=== PATIENT | male | born 1955 | race Caucasian/White ===

== ENCOUNTER 2016-10-30 14:27 | Emergency (ER) | payer BC ==
[~2016-10-30] VITALS: Ht 165.1 cm; Wt 79.5 kg
[~2016-10-30 14:27] MED LIST: OMEG10007 PO; RANI150T3 PO; TNR50 PO
[2016-10-30] MEDS ORDERED: LIDOCAINE HCL 2% JELLY 30 ML TUBE EXT ONE ×2 (14:29→16:45)
[2016-10-30 14:33] VITALS: TEMP 36.5; Ht 165.1 cm; Wt 79.5 kg
[2016-10-30] MEDS ORDERED: SODIUM CHLORIDE 0.9% 1000ML 1,000 ML IV STA (15:40)
--- NOTE | 2016-10-30 15:48 | EMERGENCY ROOM VISIT NOTE ---
History First contact with patient: 15:32 Chief Complaint: URINARY SYMPTOMS Stated Complaint: CANT URINATE AND BLOOD Nursing Triage Summary: pt reports unable to void since noon. has blood coming out of penis History of Present Illness The patient is a 61 year old male who presents to the Emergency Room with complaints of urinary retention and hematuria. The patient states that he has not been able to urinate for the last 4 hours. The patient states that when he does attempt to urinate, blood comes out and not urine. He reports feeling uncomfortable and rates his discomfort a 5/10. He denies any fever or chills. He denies any back pain. He denies any nausea or vomiting. He denies any history of kidney stone. He denies any history of prostate enlargement or issues. He denies any falls or injuries. Review of Systems A 10 system review of systems was completed with positives and pertinent negatives listed in the HPI. Past Medical/Surgical History Medical Problems: (1) Hypertension Social History Smoking Status: Never Smoker Alcohol Use: none Drug Use: none Marital Status: Occupation Status: employed Current/Historical Medications Scheduled Atenolol (Atenolol), 50 MG PO DAILY Guaifenesin Ext Rel (Mucinex Ext Rel), 1 TAB PO Q12 Sulfa/Trimethoprim (Bactrim Ds 800MG/160MG), 1 TAB PO BID Tamsulosin Hcl (Flomax), 0.4 MG PO DAILY Miscellaneous Medications Fish Oil ([place]-3), 1 CAP PO Allergies Coded Allergies: Statins (Verified Allergy, Unknown, ., 08/03/16) pt said while on statin he developed pain in his back and then in his heel. Physical Exam Vital Signs Date Time Temp Pulse Resp B/P Pulse Ox O2 Delivery O2 Flow Rate FiO2 10/30/16 20:34 65 21 110/71 95 10/30/16 19:50 65 21 110/71 95 Room Air 10/30/16 18:00 87 18 185/123 94 Room Air 10/30/16 15:53 66 18 214/113 98 Room Air 10/30/16 14:33 36.5 68 18 220/130 98 Room Air Physical Exam VITALS: Vitals are noted on the nurse's note and reviewed by myself. Vital signs stable. The patient is afebrile. He is hypertensive. GENERAL: This is a 61-year-old male, in no acute distress, nondiaphoretic, well- developed well-nourished. SKIN: The skin was without rashes, erythema, edema, or bruising. There is no tenting of the skin. Capillary reflex less than 2 seconds. HEAD: Normocephalic atraumatic. EARS: The external ears are normal in appearance EYES: Pupils equal round and reactive to light and accommodation. Conjunctivae without injection, sclerae without icterus. Extraocular movements intact. NOSE: Patent, turbinates without inflammation or discharge. MOUTH: Mucous membranes moist. Tonsils are not enlarged. Pharynx without erythema or exudate. Uvula midline. Airway patent. Tongue does not deviate. NECK: Supple without nuchal rigidity. No JVD. HEART: Regular rate and rhythm without murmurs gallops or rubs. LUNGS: Clear to auscultation bilaterally without wheezes, rales or rhonchi. No retractions or accessory muscle use. ABDOMEN: Positive bowel sounds x 4. Soft, distended with suprapubic tenderness , without masses or organomegaly. There is no CVA tenderness. MUSCULOSKELETAL: No muscle atrophy, erythema, or edema noted. Full range of motion in all extremities. No tenderness to palpation. Normal gait. Strength 5/5 throughout. NEURO: Patient was alert and oriented to person place and time. No focal neurological deficits. Medical Decision & Procedures ER Provider Diagnostic Interpretation: ABDOMEN AND PELVIS CT WITHOUT CONTRAST CT DOSE: 2328.78 mGy.cm HISTORY: hematuria, urinary retention TECHNIQUE: Multiaxial CT images of the abdomen and pelvis were performed without the use of intravenous and oral contrast according to the standard department stone protocol. COMPARISON STUDY: Abdomen and pelvis CT 05/12/2008. FINDINGS: A 1.4 cm hypodense lesion within the upper pole of the right kidney which is similar in size. This is indeterminate on this noncontrast study but favors a cyst. Mild bilateral perinephric edema which appear symmetric. There is mild fullness within the bilateral renal collecting systems without doreen hydronephrosis. No renal or ureteral calculi. The bladder is moderately distended. No bladder wall thickening. Small fat-containing umbilical hernia. Small fat containing left inguinal hernia which is not significantly changed. Small hiatus hernia. The lung bases are essentially clear. Mild edema anterior to the bladder. Mild bilateral periureteral edema. The unenhanced liver demonstrates a 5 mm hypodense lesion on image 46. This is stable from the prior study and is likely benign. The unenhanced spleen, adrenal glands, and pancreas are unremarkable. Cholelithiasis. No gallbladder wall thickening. Suboptimal evaluation for bowel pathology due to the lack of intravenous and oral contrast. However, there is no definite bowel wall thickening or obstruction. A few colonic diverticula. IMPRESSION: 1. No renal or ureteral stones. 2. Mild fullness within the bilateral renal collecting systems without doreen hydronephrosis. This is likely due to the distended bladder. Recommend catheterization. 3. Mild bilateral perinephric edema, periureteral edema, and edema anterior to the bladder. This could represent an infectious process. Recommend correlation with urinalysis. 4. No definite bowel wall thickening or obstruction. 5. Cholelithiasis. 6. Normal appendix. Laboratory Results 10/30/16 16:32 Red Blood Count 5.45, Mean Corpuscular Volume 90.1, Mean Corpuscular Hemoglobin 33.8, Mean Corpuscular Hemoglobin Concent 37.5, Mean Platelet Volume 10.3, Neutrophils (%) (Auto) 74.3, Lymphocytes (%) (Auto) 16.4, Monocytes (%) (Auto) 7.6, Eosinophils (%) (Auto) 0.8, Basophils (%) (Auto) 0.6, Neutrophils # (Auto) 7.67, Lymphocytes # (Auto) 1.69, Monocytes # (Auto) 0.78, Eosinophils # (Auto) 0.08, Basophils # (Auto) 0.06 10/30/16 16:32 Test 10/30/16 16:32 10/30/16 19:47 White Blood Count 10.31 K/uL (4.8-10.8) Red Blood Count 5.45 M/uL (4.7-6.1) Hemoglobin 18.4 g/dL (14.0-18.0) Hematocrit 49.1 % (42-52) Mean Corpuscular Volume 90.1 fL (80-100) Mean Corpuscular Hemoglobin 33.8 pg (25-34) Mean Corpuscular Hemoglobin Concent 37.5 g/dl (32-36) Platelet Count 204 K/uL (130-400) Mean Platelet Volume 10.3 fL (7.4-10.4) Neutrophils (%) (Auto) 74.3 % Lymphocytes (%) (Auto) 16.4 % Monocytes (%) (Auto) 7.6 % Eosinophils (%) (Auto) 0.8 % Basophils (%) (Auto) 0.6 % Neutrophils # (Auto) 7.67 K/uL (1.4-6.5) Lymphocytes # (Auto) 1.69 K/uL (1.2-3.4) Monocytes # (Auto) 0.78 K/uL (0.11-0.59) Eosinophils # (Auto) 0.08 K/uL (0-0.5) Basophils # (Auto) 0.06 K/uL (0-0.2) RDW Standard Deviation 44.0 fL (36.4-46.3) RDW Coefficient of Variation 13.6 % (11.5-14.5) Immature Granulocyte % (Auto) 0.3 % Immature Granulocyte # (Auto) 0.03 K/uL (0.00-0.02) Prothrombin Time 11.3 SECONDS (9.0-12.0) Prothromb Time International Ratio 1.1 (0.9-1.1) Activated Partial Thromboplast Time 25.8 SECONDS (21.0-31.0) Partial Thromboplastin Ratio 1.0 Anion Gap 15.0 mmol/L (3-11) Est Creatinine Clear Calc Drug Dose 53.8 ml/min Estimated GFR () 62.4 Estimated GFR (Non- 53.8 BUN/Creatinine Ratio 16.6 (10-20) Calcium Level 8.8 mg/dl (8.5-10.1) Total Bilirubin 2.7 mg/dl (0.2-1) Aspartate Amino Transf (AST/SGOT) 28 U/L (15-37) Alanine Aminotransferase (ALT/SGPT) 43 U/L (12-78) Alkaline Phosphatase 94 U/L (45-117) Total Protein 8.0 gm/dl (6.4-8.2) Albumin 4.5 gm/dl (3.4-5.0) Globulin 3.5 gm/dl (2.5-4.0) Albumin/Globulin Ratio 1.3 (0.9-2) Urine Color ORANGE Urine Appearance CLOUDY (CLEAR) Urine pH 5.0 (4.5-7.5) Urine Specific [place] 1.010 (1.000-1.030) Urine Protein TRACE (NEG) Urine Glucose (UA) NEG (NEG) Urine Ketones NEG (NEG) Urine Occult Blood 3+ (NEG) Urine Nitrite NEG (NEG) Urine Bilirubin NEG (NEG) Urine Urobilinogen NEG (NEG) Urine Leukocyte Esterase NEG (NEG) Urine WBC (Auto) 1-5 /hpf (0-5) Urine RBC (Auto) >30 /hpf (0-4) Urine Hyaline Casts (Auto) 0 /lpf (0-5) Urine Epithelial Cells (Auto) >30 /lpf (0-5) Urine Bacteria (Auto) NEG (NEG) Medications Administered Medications (Trade) Dose Ordered Sig/Himanshu Route Start Time Stop Time Status Last Admin Dose Admin Sodium Chloride (Nss 1000ml) 1,000 ml @ 999 mls/hr Q1H1M STAT IV 10/30/16 15:40 10/30/16 16:40 DC 10/30/16 15:00 999 MLS/HR Morphine Sulfate (MoRPHine SULFATE INJ) 4 mg NOW STAT IV 10/30/16 16:35 10/30/16 16:36 DC 10/30/16 16:42 4 MG Lidocaine HCl (Xylocaine Jelly 2%) 30 ml STK-MED ONCE EXT 10/30/16 16:45 10/30/16 16:47 DC 10/30/16 16:45 30 ML Morphine Sulfate (MoRPHine SULFATE INJ) 4 mg NOW STAT IV 10/30/16 18:26 10/30/16 18:27 DC 10/30/16 18:32 4 MG Trimethoprim/ Sulfamethoxazole (Septra Ds 800/ 160MG Tab) 1 tab NOW STAT PO 10/30/16 19:53 10/30/16 19:55 DC 10/30/16 20:07 1 TAB Tamsulosin HCl (Flomax Cap) 0.4 mg NOW ONCE PO 10/30/16 20:00 10/30/16 20:01 DC 10/30/16 20:07 0.4 MG ED Course The patient was seen and examined. Previous visits were reviewed. The patient was afebrile. He did not have any significant electrolyte abnormality. His INR was 1.1. Urinalysis reveals hematuria. CT scan of the abdomen and pelvis was as above The patient was hydrated with normal saline solution He was given a total of 8 mg IV morphine The patient presented with urinary retention. Upon arrival, bladder scan revealed 682 MLS of urine retained in the bladder. The emergency department ultra sound technician attempted to place a urinary catheter without success. Dr. Pool then tried several times as well including an 18 coud, 12 Malian without being able to pass the catheter. I discussed the case with on-call urology, Dr. Page. He suggested trying a Urojet an [address] the lidocaine jelly in the urethra. The emergency department ultra sound technician attempted to pass an 18 2 day catheter with no success. I contacted Dr. Page again. He evaluated the patient in the emergency department. He was able to place a Hernandez catheter. The patient was switched to a leg bag. The patient will be placed on Bactrim. He will be placed on Flomax twice daily for the next 3 days and then once daily. He should contact [facility] urology first thing in the morning to schedule a follow-up appointment for further evaluation and management. Dr. Page recommends Hernandez catheter removal in 3 days. The patient was also seen and examined by who agrees with the assessment and treatment plan. Medical Decision The differential diagnosis includes BPH, neoplasm, kidney stone, urinary tract infection, pyelonephritis, constipation, medication reaction, among others Impression Primary Impression: Symptoms of urinary tract infection Additional Impressions: Urinary retention Hematuria Departure Information Dispostion Home / Self-Care Condition GOOD Prescriptions Tamsulosin Hcl (FLOMAX) 0.4 Mg Cap 0.4 MG PO DAILY for 30 Days, #30 CAP Prov: Megan Mccoy PA-C 10/30/16 Sulfa/Trimethoprim (Bactrim Ds 800MG/160MG) Tab 1 TAB PO BID for 7 Days, #14 TAB Prov: Megan Mccoy PA-C 10/30/16 Referrals Adela Thurston M.D. (PCP) Smooth Ojeda M.D. Patient Instructions ED Retention Urinary Male, My [facility], Urinary Tract Infecs Men Additional Instructions Bactrim every 12 hours for 7 days Flomax take one tablet every 12 hours for 3 days then switch to one tablet every 24 hours Contact urology first thing in the morning to schedule a follow-up appointment Return with any worsening symptoms Problem Qualifiers
[2016-10-30] MEDS ORDERED: GUAI1TAB55 PO (15:55)
[2016-10-30] MEDS ORDERED: MoRPHine SULFATE 4 MG/ML 1 ML CARP\\VIAL IV STA ×2 (16:35→18:26)
[2016-10-30 16:43] LABS: BASO % 0.6 %; BASO ABS # 0.06 K/uL (0-0.2); COMPLETE YES; EOS % 0.8 %; HEMATOCRIT 49.1 % (42-52); IG% 0.3 %; LYMPH % 16.4 %; LYMPH ABS # 1.69 K/uL (1.2-3.4); MEAN CELL VOLUME 90.1 fL (80-100); MEAN CORPUSCULAR HEMOGLOBIN 33.8 pg (25-34); MEAN CORPUSCULAR HGB CONC 37.5 g/dl (32-36); MEAN PLATELET VOLUME 10.3 fL (7.4-10.4); MONO % 7.6 %; NEUT % 74.3 %; PLATELET COUNT 204 K/uL (130-400); RED BLOOD COUNT 5.45 M/uL (4.7-6.1); WHITE BLOOD COUNT 10.31 K/uL (4.8-10.8)
[2016-10-30 16:55] LABS: INR 1.1 (0.9-1.1); PROTHROMBIN TIME (PATIENT) 11.3 SECONDS (9.0-12.0)
--- NOTE | 2016-10-30 16:57 | EMERGENCY ROOM VISIT NOTE ---
ED Visit Note First contact with patient: 15:32 This Patient was discussed with the physician assistant program director, Socorro Mccoy PA-C. The pertinent historical and physical exam findings were confirmed. I agree with the studies ordered and with the interpretations of these studies. I agree with the disposition and care plan.
[2016-10-30 17:02] LABS: BUN/CREATININE RATIO 16.6 (10-20); CALCIUM 8.8 mg/dl (8.5-10.1); CREATININE 1.4 mg/dl (0.60-1.40); POTASSIUM 3.6 mmol/L (3.5-5.1)
[2016-10-30 17:05] LABS: ALB/GLOB RATIO 1.3 (0.9-2)
--- NOTE | 2016-10-30 18:04 | DIAGNOSTIC IMAGING REPORT ---
ABDOMEN AND PELVIS CT WITHOUT CONTRAST CT DOSE: 2328.78 mGy.cm HISTORY: hematuria, urinary retention TECHNIQUE: Multiaxial CT images of the abdomen and pelvis were performed without the use of intravenous and oral contrast according to the standard department stone protocol. COMPARISON STUDY: Abdomen and pelvis CT 05/12/2008. FINDINGS: A 1.4 cm hypodense lesion within the upper pole of the right kidney which is similar in size. This is indeterminate on this noncontrast study but favors a cyst. Mild bilateral perinephric edema which appear symmetric. There is mild fullness within the bilateral renal collecting systems without doreen hydronephrosis. No renal or ureteral calculi. The bladder is moderately distended. No bladder wall thickening. Small fat-containing umbilical hernia. Small fat containing left inguinal hernia which is not significantly changed. Small hiatus hernia. The lung bases are essentially clear. Mild edema anterior to the bladder. Mild bilateral periureteral edema. The unenhanced liver demonstrates a 5 mm hypodense lesion on image 46. This is stable from the prior study and is likely benign. The unenhanced spleen, adrenal glands, and pancreas are unremarkable. Cholelithiasis. No gallbladder wall thickening. Suboptimal evaluation for bowel pathology due to the lack of intravenous and oral contrast. However, there is no definite bowel wall thickening or obstruction. A few colonic diverticula. IMPRESSION: 1. No renal or ureteral stones. 2. Mild fullness within the bilateral renal collecting systems without doreen hydronephrosis. This is likely due to the distended bladder. Recommend catheterization. 3. Mild bilateral perinephric edema, periureteral edema, and edema anterior to the bladder. This could represent an infectious process. Recommend correlation with urinalysis. 4. No definite bowel wall thickening or obstruction. 5. Cholelithiasis. 6. Normal appendix. Electronically signed by: Sang Snyder M.D. 10/30/2016 6:02 PM Dictated Date/Time: 10/30/2016 5:53 PM
[2016-10-30] MEDS ORDERED: SULFAMETHOXAZOLE/TRIMETHOPRIM DS 800/160MG TAB PO STA (19:53)
[2016-10-30] MEDS ORDERED: TAMS0.4C38 PO (19:56)
[2016-10-30] MEDS ORDERED: SULF800T23 PO (19:56)
[2016-10-30] MEDS ORDERED: TAMSULOSIN HCL 0.4 MG CAP PO ONE (20:00)
[2016-10-30 20:10] LABS: URINE APPEARANCE CLOUDY (CLEAR); URINE BILIRUBIN NEG (NEG); URINE COLOR ORANGE; URINE EPITHELIAL CELL AUTO >30 /lpf (0-5); URINE NITRITE NEG (NEG); UROBILINOGEN NEG (NEG); ZZURINE CULT IF INDIC CATH NO
[2016-10-30 20:13] LABS: MANUAL MICROSCOPIC REQUIRED? NO; REVIEW REQ? NO
[2016-10-30 20:34] VITALS: BP 110/71; PULSE 65; O2SAT 95
--- NOTE | 2016-11-01 06:44 | Urology Consultation ---
History General Date of Service: Oct 30, 2016. Primary Care Physician: Adela Thurston M.D. History of Present Illness 61 y/o male. Hx of BPH sxs. Presented to the ED this evening after not being able to void since 2pm. He has had cold recently and took some Mucinex. He also had intercourse earlier that day. Afterwards he felt a strong urge to void but would only pass a few drops. This has never happened to him before. In the past he has had a slower stream. Urge. Freq. Nocturia. No straining. No intermit. Mild hesitancy. No hx of UTIs. No fam hx of prostate ca. Upon arrival to the ED, a bladder scan was done which showed a PVR >500cc. Multiple attempts at placing a catheter were made and were unsuccessful. Urology was then consulted. Laboratory Labs were reviewed and are within normal limits unless listed below. Labs are available in the chart and at [facility] Problem List Medical Problems: (1) Acute cystitis with hematuria Status: Acute (2) Bleeding hemorrhoid Status: Acute (3) Epistaxis Status: Acute (4) Hematuria Status: Acute (5) Symptoms of urinary tract infection Status: Acute (6) Symptoms of urinary tract infection Status: Acute (7) Thrombosed external hemorrhoid Status: Acute (8) Urinary retention Status: Acute Past History no pertinent history Past Surgical History: no surgical history Social History Smoking: non-smoker Alcohol: socially Marital status: Housing status: lives with family Occupation status: employed History of MDRO No Allergies Coded Allergies: Statins (Verified Allergy, Unknown, ., 08/03/16) pt said while on statin he developed pain in his back and then in his heel. Medications Home Medications: Home Meds and Scripts Medications Dose Route/Sig Max Daily Dose Days Date Category Flomax (Tamsulosin Hcl) 0.4 Mg Cap 0.4 Mg PO DAILY 30 10/30/16 Rx Bactrim Ds 800MG/160MG (Trimethoprim/Sulfamethoxazole) Tab 1 Tab PO BID 7 10/30/16 Rx Mucinex Ext Rel (Guaifenesin) Unknown Strength Tab 1 Tab PO Q12 10/30/16 Reported Atenolol 50 Mg Tab 50 Mg PO DAILY 08/03/16 Reported [place]-3 (Fish Oil) 1 Ea Cap 1 Cap PO 3/13/16 Reported Review of Systems Review of Systems Constitutional: No chills, No fever, No frequent headaches, No problem reported , No see HPI, No weight loss Neurological: No dizzy, No numbness/tingling, No passing out, No problem reported, No see HPI, No seizures Gastrointestinal: + abdominal pain Cardiovascular: No angina, No chest pain, No heart murmur, No irregular heartbeat, No palpitations, No problem reported, No see HPI, No swelling ankles/ feet Respiratory: No chronic cough, No coughing up blood, No problem reported, No see HPI, No shortness of breath, No wheezing Male : + urinary retention All Other Systems: Reviewed and Negative Physical Exam Physical Exam: General Appearance: WD/WN ENT: normal ENT inspection Neck: no adenopathy Respiratory/Chest: chest non-tender, lungs clear Cardiovascular: regular rate, rhythm Extremities: normal range of motion Neurologic/Psychiatric: no motor/sensory deficits, oriented x 3 Skin: normal color Lymphatic: no adenopathy Assessment & Plan Assessment & Plan (1) Urinary retention Status: Acute (2) Hematuria Status: Acute At the bedside, cystoscopy was performed. A false passage in the distal urethra was noted. A wired was passed into the true lumen and the scope passed over the wire. The prostate was enlarged. A 16F [place] was then placed over the wire and 900cc of urine was drained. The patient should keep the catheter for 3-5 days and f/u in the office for voiding trail. Cipro x5 days. Flomax 0.4mg BID x2 weeks.
== END 2016-10-30 20:36 | disposition home or self-care (01) ==
LOC: C.EDB 14:28
DX: R33.9 Retention of urine, unspecified (principal); R31.9 Hematuria, unspecified; I10 Essential (primary) hypertension; Z79.899 Other long term (current) drug therapy; Z88.8 Allergy status to other drugs, medicaments and biological substances

== ENCOUNTER → 2017-06-28 | Outpatient (CLI) | payer BC ==
[~2017-06-28] MED LIST changes: +GUAI1TAB55 PO; -RANI150T3 PO
[2017-06-28 13:00] LABS: ALT/SGPT 36 U/L (12-78); AST/SGOT 24 U/L (15-37); BLOOD UREA NITROGEN 22 mg/dl (7-18); BUN/CREATININE RATIO 22.2 (10-20); CALCIUM 8.9 mg/dl (8.5-10.1); CARBON DIOXIDE 25 mmol/L (21-32); CHLORIDE 107 mmol/L (98-107); CHOLESTEROL 174 mg/dl (0-200); CREATININE 0.99 mg/dl (0.60-1.40); GLUCOSE 112 mg/dl (70-99); POTASSIUM 4.1 mmol/L (3.5-5.1); SODIUM 139 mmol/L (136-145)
[2017-06-28 13:03] LABS: ALB/GLOB RATIO 1.4 (0.9-2); ALKALINE PHOSPHATASE 63 U/L (45-117); CHOLESTEROL/HDL RATIO 4.6; HDL CHOLESTEROL 38 mg/dl; LDL CHOLESTEROL CALCULATED 107 mg/dl; TRIGLYCERIDES 145 mg/dl (0-150); VERY LOW DENSITY LIPOPROT CALC 29 mg/dl
== END | disposition home or self-care (01) ==
LOC: C.LABPVFM 08:08
PROVIDERS: ATTEND Family Medicine
DX: N40.0 Benign prostatic hyperplasia without lower urinary tract symptoms (principal); I10 Essential (primary) hypertension; E78.5 Hyperlipidemia, unspecified; Z12.11 Encounter for screening for malignant neoplasm of colon; R73.9 Hyperglycemia, unspecified; Z11.59 Encounter for screening for other viral diseases

== ENCOUNTER 2019-03-17 18:09 | Observation (INO) ==
[2019-03-17] MEDS ORDERED: ONDANSETRON INJ 2 MG/ML 2 ML VIAL IV STA (18:31)
[2019-03-17] MEDS ORDERED: ATENOLOL 50 MG TABLET PO ONE (18:31)
[2019-03-17] MEDS ORDERED: SODIUM CHLORIDE 0.9% 1000ML 500 ML IV ONE (18:35)
--- NOTE | 2019-03-17 18:55 | XRay Report ---
XR chest 1V portable CLINICAL HISTORY: Weakness, dizziness. COMPARISON STUDY: November 2016 FINDINGS: The heart is mildly enlarged. There is aortic tortuosity/ectasia. There is no focal pulmona ry consolidation. There is slight elevation of the interstitium. While this may be related to technic al factors an element of mild pulmonary vascular congestion cannot be excluded. There is an equivocal 7 mm right upper lung zone nodule. IMPRESSION: 1. Mild cardiomegaly 2. Mild elevation of the interstitium. An element of mild pulmonary vascular congestion cannot be exc luded 3. Equivocal 7 mm right upper lung zone pulmonary nodule 4. No evidence of focal pulmonary consolidation Electronically signed by: Issac David M.D. 03/17/2019 6:53 PM
[2019-03-17 18:57] LABS: Basophils # (auto) 0.02 K/uL (0-0.2); Basophils % (auto) 0.3 %; Eosinophils # (auto) 0.06 K/uL (0-0.5); Eosinophils % (auto) 0.9 %; Hematocrit (blood only) 45.3 % (42-52); Hemoglobin 16.9 g/dL (14.0-18.0); Immature Granulocytes # (auto) 0.02 K/uL (0.00-0.02); Immature Granulocytes % (auto) 0.3 %; Lymphocytes # (auto) 1.08 K/uL (1.2-3.4); Mean Corpuscular Hgb Conc 37.3 g/dL (32-36); Mean Corpuscular Volume 90.8 fL (80-100); Mean Platelet Volume 10.1 fL (7.4-10.4); Monocytes # (auto) 0.53 K/uL (0.11-0.59); Monocytes % (auto) 7.9 %; Neutrophils # (auto) 5.04 K/uL (1.4-6.5); Neutrophils % (auto) 74.6 %; Platelet Count 148 K/uL (130-400); RDW Coefficient of Variation 13.8 % (11.5-14.5); Red Blood Count 4.99 M/uL (4.7-6.1); White Blood Count 6.75 K/uL (4.8-10.8)
--- NOTE | 2019-03-17 19:13 | CT Scan Report ---
CT head/brain wo con CLINICAL HISTORY: Stroke like symptoms. Disequilibrium. COMPARISON STUDY: No previous studies for comparison. TECHNIQUE: Axial CT of the brain is performed from the vertex to the skull base. IV contrast was not administered for this examination. A dose lowering technique was utilized adhering to the principles of ALARA. CT DOSE: 537.48 mGy.cm FINDINGS: No intra or extra-axial mass lesions are visualized. There is no CT evidence of acute cortical infarc tion. There is no evidence of midline shift. There is no acute hemorrhage. No calvarial fractures ar e visualized. There are minimal white matter hypodensities likely on a small vessel basis. There is no evidence of pathologic ventricular dilatation. There is no evidence of acute sinusitis IMPRESSION: No acute intracranial findings Electronically signed by: Issac David M.D. 03/17/2019 7:12 PM
[2019-03-17 19:18] LABS: INR 1.1 (0.9-1.1); Partial Thromboplastin Ratio 0.8; Partial Thromboplastin Time 22.4 Seconds (21.0-31.0); Prothrombin Time 11.3 Seconds (9.0-12.0)
[2019-03-17 19:20] LABS: Alanine Aminotransferase 31 U/L (12-78); Albumin Level 3.9 gm/dl (3.4-5.0); Aspartate Aminotransferase 19 U/L (15-37); BUN Creatinine Ratio 21.8 (10-20); Blood Urea Nitrogen 22 mg/dl (7-18); Calcium 8.9 mg/dl (8.5-10.1); Carbon Dioxide 24 mmol/L (21-32); Chloride 109 mmol/L (98-107); Creatinine Clr Calc Pharmacy 71.7 ml/min; Est GFR (African American) 89.6; Est GFR (Non-African American) 77.3; Glucose 126 mg/dl (70-99); Magnesium 2.2 mg/dl (1.8-2.4); Potassium 4.2 mmol/L (3.5-5.1); Sodium 139 mmol/L (136-145)
[2019-03-17 19:25] LABS: Albumin Globulin Ratio 1.3 (0.9-2); Alkaline Phosphatase 73 U/L (45-117); Bilirubin,Total 2.8 mg/dl (0.2-1); Creatine Kinase MB 5.5 ng/ml (0.5-3.6); Globulin 3.1 gm/dl (2.5-4.0); Troponin I < 0.015 ng/ml (0-0.045)
[2019-03-17] MEDS ORDERED: METOCLOPRAMIDE HCL INJ 5 MG/ML 2 ML VIAL IV STA (19:51)
[2019-03-17] MEDS ORDERED: ASPIRIN CHEW 324 MG PO STA (19:51)
--- NOTE | 2019-03-17 20:29 | History & Physical Report ---
Date of Service March 17, 2019 Assessment & Plan (1) Dizziness: Chief Complaint: 64 y/o M Hx HTN, BPH, GERD, medical noncompliance. Presents with acute dizziness, nausea, vomiting and mild confusion. He had been nondenominational hopping to "get out the word" today when the symptoms began. He denies a MCCLAIN, visual changes, unilateral weakness or numbness. His SBP on arrival to the ER was 186/112. He admits to not taking his antihypertensives for an extended period, although it is not clear why. A CT of the head was negative. Labs were unremarkable aside form an elevated bilirubin. An EKG demonstrated new inferior Q waves. As an aside, he is currently undergoing a workup for persistent nausea, occasional vomiting, upper quadrant abdominal pain and an elevated bilirubin. He had a liver US on 03/13 which demonstrated cholelithiasis, mild dilatation of the main pancreatic duct. A CT of the abdomen was recommended to exclude a lesion. A HIDA may also be in order if the CT is negative. 1) Dizziness, mild confusion. This may be due to hypertensive encephalopathy as he does not comply with his meds and his pressure was notably elevated on arrival to the ER. We would want to r/o a CVA regardless. He is scheduled for an MRA/MRI and will be assigned to telemetry with a CVA protocol. He is provided with ASA and a statin. He was given an antihypertensive in the ER which has brought him down into the 160s. This is adequate for now or until we r/o a CVA. A fasting lipid profile is pending. 2) Abnormal EKG - LVH and new Q waves inferiorly. An echo is ordered. He may have had a prior UT due to his persistent HTN and noncompliance although he does not recall an related symptoms. We will obtain an echo AM. 3) Abdominal pain, nausea, vomiting, abnormal US, elevated bilirubin. As a CT abdomen was recommended, we will obtain this AM. It is not possible to definit ively implicate vertigo or dizziness for his nausea and vomiting as this has been an ongoing issue. 4) HTN - he has been cautioned regarding noncompliance. We would reintroduce his amlodipine AM, however, his atenolol merits a substitution as his HR at rest is 56. 5) BPH - cont Flomax 6) GERD - cont ranitidine Full code - Heparin prophylaxis Total time for this admit including review of labs, meds, imaging, records - discussion with pt and ER attending 40 min Present on Admission?: Yes (2) Hypertensive encephalopathy: History of Present Illness Chief Complaint: 64 y/o M Hx HTN, BPH, GERD, medical noncompliance. Presents with acute dizziness, nausea, vomiting and mild confusion. He had been nondenominational hopping to "get out the word" today when the symptoms began. He denies a MCCLAIN, visual changes, unilateral weakness or numbness. His SBP on arrival to the ER was 186/112. He admits to not taking his antihypertensives for an extended period, although it is not clear why. A CT of the head was negative. Labs were unremarkable aside form an elevated bilirubin. An EKG demonstrated new inferior Q waves. As an aside, he is currently undergoing a workup for persistent nausea, occasional vomiting, upper quadrant abdominal pain and an elevated bilirubin. He had a liver US on 03/13 which demonstrated cholelithiasis, mild dilatation of the main pancreatic duct. A CT of the abdomen was recommended to exclude a lesion. A HIDA may also be in order if the CT is negative. PMH: 1) HTN 2) HLD 3) GERD 4) BPH 5) Medical noncompliance Denies a history of surgery Social: No history of drinking or smoking. Family: Both parents following CVAs . Primary Care Provider: Adela Thurston MD Allergies Allergy/AdvReac Type Severity Reaction Status Date / Time Disgelm-Hlu-Yam Reductase Allergy Unknown . Verified 03/17/19 19:31 Inhibitor Home Medications Home Medications Medication Instructions Recorded Confirmed Type amlodipine 2.5 mg PO HS 03/17/19 03/17/19 History atenolol 50 mg PO HS 03/17/19 03/17/19 History ranitidine HCl 150 mg PO QAM 03/17/19 03/17/19 History tamsulosin 0.4 mg PO HS 03/17/19 03/17/19 History Past Med/Surg History Medical History Hematuria (Acute) Hypertension (Chronic) Social History Preferred Language: Ivorian Feels Safe at Home: Yes Smoking Status: Never smoker Review of Systems Review of Systems: Gen: Denies fevers, night sweats, rigors, fatigue, malaise, weight loss/gain ENT: Denies congestion, throat pain, hearing loss Eyes: Denies acute visual changes CV: Denies CP, palpitations Pulmonary: Denies SOB, cough, wheezing GI: Denies N/V, diarrhea, constipation Neuro: Acute dizziness and mild confusion/disorientation Musculoskeletal: Denies joint pain, inflammation Endocrine: Denies polydipsia, polyuria Skin: Denies acute rashes or ulcers Physical Exam Physical Exam: General: AAO x 3 although he may be slightly slow to respond ENT: No erythema or exudates, no thrush Eyes: THOMAS, EOMI Head and neck: Normocephalic, atraumatic, No JVD, neck is supple. Chest/heart: Nontender, S1,2, RRR, no murmurs, no gallops Lungs: CTAB, no wheezing or crackles Abdomen: Nontender, nondistended, BS+ Neuro: AAO x 3, speech is clear, no unilateral weakness or loss of sensation, coordination intact - he was able to sit up without difficulty and maintain balance while sitting. Musculoskeletal: No joint inflammation, muscle tenderness, FROM Skin: No acute rashes or ulcers Extremities: No clubbing, cyanosis, edema Results & Data Vital Signs (Past 12 Hours) Vital Signs Temp Pulse Pulse Resp BP BP Pulse Ox 03/17/19 19:37 75 17 186/112 H 98 03/17/19 19:33 75 19 186/112 H 03/17/19 19:30 68 19 03/17/19 19:20 63 14 03/17/19 19:10 61 15 03/17/19 19:05 65 17 03/17/19 18:50 67 15 97 03/17/19 18:44 55 L 14 159/96 H 95 03/17/19 18:40 55 L 14 03/17/19 18:14 97.7 F 78 16 178/[address] head: No acute abnormalities CT abdomen: 1. Cholelithiasis. No evidence for acute cholecystitis. 2. No biliary ductal dilatation. 3. Mild dilatation of the main pancreatic duct. No pancreatic lesion although head and tail partially obscured. A CT of the abdomen pancreatic protocol is recommended to exclude a pancreatic lesion. 4. Suspected mild fatty infiltration of the liver. PG Care Time/CCT Total # of Minutes Spent Total Time Spent with Patient: Total time spent is greater than 50% in coordination of care (as documented) at patient's floor/unit and/or counseling patient:
--- NOTE | 2019-03-17 22:28 | Magnetic Resonance Report ---
MRI OF THE BRAIN WITHOUT CONTRAST CLINICAL HISTORY: Severe dizziness and hypertension. HEADACHES COMPARISON STUDY: Head CT dated 03/17/2019 FINDINGS: Sagittal T1, axial diffusion, proton density and T2 weighted axial, coronal FLAIR, and axial T1-weigh antonio images were acquired. No intra or extra-axial mass lesions are visualized Axial diffusion-weighted images reveal no evidence of acute or subacute infarction. There is no evidence of ventricular dilatation. Proton density T2-weighted and FLAIR images reveal no significant intraparenchymal signal abnormaliti es. There are no abnormal flow voids. There is deformity of the left mandibular condyle, likely on an arthritic basis. There are minor inflammatory changes within the right mastoid. IMPRESSION: 1. No acute intracranial findings 2. No evidence of acute or subacute infarction 3. No evidence of intracranial mass 4. Inflammatory changes within the right mastoid 5. 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 03/17/2019 10:27 PM
[2019-03-17] MEDS ORDERED: PHARMACIST DISCHARGE MED REC CONSULT PRN (22:38)
[2019-03-17] MEDS ORDERED: ACETAMINOPHEN 325 MG TAB PO PRN (22:38)
[2019-03-17] MEDS ORDERED: SODIUM CHLORIDE 0.9% 1000ML 1,000 ML IV SCH (22:38)
--- NOTE | 2019-03-17 23:03 | Emergency Department Note ---
Entered by Eliza Potts acting as a scribe for Bayron Knight MD History of Present Illness General Chief complaint: Dizziness Stated complaint: DIZZY,VOMITING Time Seen by Provider: 03/17/19 18:18 Source: patient History of Present Illness Provider complaint: dizziness Onset (ago): day(s) (this morning) Location: head Severity: similar to prior episodes Pain Consistency: + other (worsening) Maximum Pain Intensity: 0 Relieved By: + other (lying down) Exacerbated By: + other (+standing up, -movement of head) Associated symptoms: + loss of appetite, + nausea/vomiting and + other (- abdominal pain, -vertigo) The patient is a 64 year old male who presents to the Emergency Room with complaints of worsening dizzy episodes. The patient states that for the past year is has been experiencing dizzy episodes that have resolved on their own, but his episode today worsened and did not resolve. He reports that he has been nauseous, vomiting, and had a loss of appetite. He denies any vertigo or abdominal pain. He reports that he woke up feeling dizzy and he states it is followed by the medication that he takes the night prior. The patient states that his episodes have been more frequent lately. He states that standing up exacerbates his symptoms, and lying down relieves his symptoms. He states that moving his head does not worsen his dizziness. Home Medications Home Medications Medication Instructions Recorded Confirmed Type ranitidine HCl 150 mg PO QAM 03/17/19 03/17/19 History tamsulosin 0.4 mg PO HS 03/17/19 03/17/19 History amlodipine 5 mg PO DAILY 30 Days #30 tab 03/18/19 Rx lisinopril [Zestril] 5 mg PO QAM 30 Days #30 tab 03/18/19 Rx ondansetron HCl [Zofran] 4 mg PO DAILY PRN #10 tab 03/18/19 Rx Allergies Allergy/AdvReac Type Severity Reaction Status Date / Time Dlgbtqr-Paz-Ime Reductase Allergy Unknown . Verified 03/17/19 19:31 Inhibitor Past Med/Surg History Medical History Hematuria (Acute) Hypertension (Chronic) Social History Preferred Language: Lao Communication Ability: Effective Beliefs That Will Affect Care: None Current Living Situation: Spouse Feels Safe at Home: Yes Smoking Status: Never smoker Hx Alcohol Use: No Hx Substance Use: No Review of Systems See HPI for pertinent positives & negatives. and A total of 10 systems reviewed and were otherwise negative Physical Exam Vital Signs Vital Signs - 24 hr 03/17/19 18:14 03/17/19 18:40 03/17/19 18:44 Temperature 36.5 C Temperature Source Oral Sepsis Recent Fever Within 48 Hours No Sepsis Action Taken by Nursing No Action Required Pulse Rate 78 55 L 55 L Pulse Rate [Finger] Pulse Rate from SpO2 Sensor 54 L Respiratory Rate 16 14 14 Respiratory Effort / Characteristics Non-Labored Respiratory Depth Normal Blood Pressure 178/110 H 159/96 H Blood Pressure [Right Arm] Blood Pressure Mean 132 117 Blood Pressure Mean [Right Arm] Pulse Oximetry 92 95 Oxygen Delivery Method Room Air 03/17/19 18:50 03/17/19 19:05 03/17/19 19:10 Temperature Temperature Source Sepsis Recent Fever Within 48 Hours Sepsis Action Taken by Nursing Pulse Rate 67 65 61 Pulse Rate [Finger] Pulse Rate from SpO2 Sensor 68 Respiratory Rate 15 17 15 Respiratory Effort / Characteristics Respiratory Depth Blood Pressure Blood Pressure [Right Arm] Blood Pressure Mean Blood Pressure Mean [Right Arm] Pulse Oximetry 97 Oxygen Delivery Method 03/17/19 19:20 03/17/19 19:30 03/17/19 19:33 Temperature Temperature Source Sepsis Recent Fever Within 48 Hours Sepsis Action Taken by Nursing Pulse Rate 63 68 75 Pulse Rate [Finger] Pulse Rate from SpO2 Sensor Respiratory Rate 14 19 19 Respiratory Effort / Characteristics Respiratory Depth Blood Pressure 186/112 H Blood Pressure [Right Arm] Blood Pressure Mean 136 Blood Pressure Mean [Right Arm] Pulse Oximetry Oxygen Delivery Method 03/17/19 19:37 03/17/19 19:40 03/17/19 19:50 Temperature Temperature Source Sepsis Recent Fever Within 48 Hours Sepsis Action Taken by Nursing Pulse Rate 65 65 Pulse Rate [Finger] 75 Pulse Rate from SpO2 Sensor 65 64 Respiratory Rate 17 16 14 Respiratory Effort / Characteristics Respiratory Depth Blood Pressure Blood Pressure [Right Arm] 186/112 H Blood Pressure Mean Blood Pressure Mean [Right Arm] 136 Pulse Oximetry 98 97 94 Oxygen Delivery Method Room Air 03/17/19 20:00 03/17/19 20:01 03/17/19 20:07 Temperature Temperature Source Sepsis Recent Fever Within 48 Hours Sepsis Action Taken by Nursing Pulse Rate 60 63 Pulse Rate [Finger] 77 Pulse Rate from SpO2 Sensor 59 L 62 Respiratory Rate 11 L 13 15 Respiratory Effort / Characteristics Respiratory Depth Blood Pressure 162/98 H Blood Pressure [Right Arm] 162/98 H Blood Pressure Mean 119 Blood Pressure Mean [Right Arm] 119 Pulse Oximetry 94 94 97 Oxygen Delivery Method Room Air 03/17/19 20:10 03/17/19 20:20 03/17/19 20:30 Temperature Temperature Source Sepsis Recent Fever Within 48 Hours Sepsis Action Taken by Nursing Pulse Rate 81 80 66 Pulse Rate [Finger] Pulse Rate from SpO2 Sensor Respiratory Rate 19 17 19 Respiratory Effort / Characteristics Respiratory Depth Blood Pressure Blood Pressure [Right Arm] Blood Pressure Mean Blood Pressure Mean [Right Arm] Pulse Oximetry Oxygen Delivery Method 03/17/19 20:31 03/17/19 20:40 03/17/19 20:50 Temperature Temperature Source Sepsis Recent Fever Within 48 Hours Sepsis Action Taken by Nursing Pulse Rate 66 63 53 L Pulse Rate [Finger] Pulse Rate from SpO2 Sensor Respiratory Rate 18 17 17 Respiratory Effort / Characteristics Respiratory Depth Blood Pressure 159/98 H Blood Pressure [Right Arm] Blood Pressure Mean 118 Blood Pressure Mean [Right Arm] Pulse Oximetry Oxygen Delivery Method 03/17/19 21:00 03/17/19 21:01 03/17/19 21:02 Temperature Temperature Source Sepsis Recent Fever Within 48 Hours Sepsis Action Taken by Nursing Pulse Rate 57 L 56 L 54 L Pulse Rate [Finger] Pulse Rate from SpO2 Sensor Respiratory Rate 18 17 18 Respiratory Effort / Characteristics Respiratory Depth Blood Pressure 142/88 H Blood Pressure [Right Arm] Blood Pressure Mean 106 Blood Pressure Mean [Right Arm] Pulse Oximetry Oxygen Delivery Method 03/17/19 21:10 03/17/19 21:20 Temperature Temperature Source Sepsis Recent Fever Within 48 Hours Sepsis Action Taken by Nursing Pulse Rate 57 L 58 L Pulse Rate [Finger] Pulse Rate from SpO2 Sensor Respiratory Rate 14 18 Respiratory Effort / Characteristics Respiratory Depth Blood Pressure Blood Pressure [Right Arm] Blood Pressure Mean Blood Pressure Mean [Right Arm] Pulse Oximetry Oxygen Delivery Method GENERAL: Awake, alert, well-appearing, in no acute distress HENT: Normocephalic, atraumatic. Oropharynx unremarkable. EYES: Normal conjunctiva. Sclera non-icteric. NECK: Supple. No nuchal rigidity. FROM. No JVD. RESPIRATORY: Clear to auscultation. CARDIAC: Regular rate, normal rhythm. Extremities warm and well perfused. Pulses equal. ABDOMEN: Soft, non-distended. No tenderness to palpation. No rebound or guarding. No masses. RECTAL: Deferred. MUSCULOSKELETAL: Chest examination reveals no tenderness. The back is symmetrical on inspection without obvious abnormality. There is no CVA tenderness to palpation. No joint edema. LOWER EXTREMITIES: Calves are equal size bilaterally and non-tender. No edema. No discoloration. NEURO: Normal sensorium. No sensory or motor deficits noted. SKIN: No rash or jaundice noted. Course 1819: The patient was evaluated in room A2, and a complete history and physical examination were performed. 1944: I reviewed the patient's case with Dr. Avery [facility] Hospitalist. He will evaluate the patient for further management. Consultations Consultation #1: Dr. Avery [facility] Hospitalist Time: 19:45 Administered Medications Discontinued Medications Amlodipine Besylate (Norvasc) 5 mg PO QAM [facility] Stop: 04/17/19 08:59 Last Admin: 03/18/19 10:17 Dose: 5 mg Documented by: [id number] Aspirin (Aspirin) 324 mg PO NOW STA Stop: 03/17/19 19:52 Last Admin: 03/17/19 20:04 Dose: 324 mg Documented by: [id number] Aspirin (Ecotrin Ectab) [facility] [place] Stop: 04/17/19 08:59 Last Admin: 03/18/19 10:17 Dose: 81 mg Documented by: [id number] Atenolol (Tenormin) 50 mg PO NOW ONE Stop: 03/17/19 18:32 Last Admin: 03/17/19 19:36 Dose: 50 mg Documented by: [id number] Heparin Sodium (Porcine) (Heparin Sodium (Porcine)) 5,000 units SQ Q8 [facility] Stop: 04/17/19 05:59 Last Admin: 03/18/19 06:09 Dose: 5,000 units Documented by: [id number] Cosigned by: [id number] Heparin Sodium (Porcine) (Heparin Sodium (Porcine)) 5,000 units SQ Q8 [facility] Stop: 03/17/19 23:31 Last Admin: 03/17/19 23:58 Dose: 5,000 units Documented by: [id number] Cosigned by: [id number] Sodium Chloride (Nss 1000ml) 500 mls @ 999 mls/hr IV .Q31M ONE Stop: 03/17/19 19:05 Last Infusion: 03/17/19 19:32 Dose: 0 mls/hr Documented by: [id number] Admin: 03/17/19 18:54 Dose: 999 mls/hr Documented by: [id number] Sodium Chloride (Nss 1000ml) 1,000 mls @ 80 mls/hr IV .[id number] [facility] Stop: 03/18/19 11:07 Last Infusion: 03/18/19 12:47 Dose: 0 mls/hr Documented by: [id number] Admin: 03/17/19 23:57 Dose: 80 mls/hr Documented by: [id number] Ioversol (Optiray 320 100ml) 95 ml IV ONCE PRN PRN Reason: Interaction Checking Stop: 03/22/19 08:41 Last Admin: 03/18/19 08:42 Dose: 95 ml Documented by: [id number] Lisinopril (Zestril) 5 mg PO [facility] Stop: 04/17/19 08:59 Last Admin: 03/18/19 10:17 Dose: 5 mg Documented by: [id number] Metoclopramide HCl (Reglan) 10 mg IV NOW STA Stop: 03/17/19 19:52 Last Admin: 03/17/19 20:05 Dose: 10 mg Documented by: [id number] Ondansetron HCl (Zofran) 4 mg IV NOW STA Stop: 03/17/19 18:32 Last Admin: 03/17/19 18:54 Dose: 4 mg Documented by: [id number] Ondansetron HCl (Zofran) 4 mg IV Q6H PRN PRN Reason: Nausea Stop: 04/16/19 22:37 Last Admin: 03/18/19 10:20 Dose: 4 mg Documented by: [id number] Admin: 03/17/19 23:57 Dose: 4 mg Documented by: [id number] Ranitidine HCl (Zantac) 150 mg PO [facility] Stop: 04/17/19 08:59 Last Admin: 03/18/19 10:17 Dose: 150 mg Documented by: [id number] Medical Decision Making Differential Diagnosis Differential diagnosis: Etiologies such as benign positional vertigo, dehydration, hypovolemia, anemia, tumor, infection, hypoglycemia, electrolyte abnormalities, cardiac sources, intracerebral event, toxicologic, neurologic, as well as others were entertained. Medical Records Attestation: I reviewed the patient's medical records. Home Medications Current Medication List: was personally reviewed by me Laboratory Data Attestation: I reviewed the patient's lab results. Result diagrams: 03/18/19 05:27 03/18/19 05:27 Lab Results 03/17/19 03/17/19 03/17/19 Range/Units 18:44 18:44 18:44 WBC 6.75 (4.8-10.8) K/uL RBC 4.99 (4.7-6.1) M/uL Hgb 16.9 (14.0-18.0) g/dL Hct 45.3 (42-52) % MCV 90.8 (80-100) fL MCH 33.9 (25-34) pg MCHC 37.3 H (32-36) g/dL RDW Std Deviation 45.0 (36.4-46.3) fL RDW Coeff of Ainsley 13.8 (11.5-14.5) % Plt Count 148 (130-400) K/uL MPV 10.1 (7.4-10.4) fL Immature Gran % (Auto) 0.3 % Neut % (Auto) 74.6 % Lymph % (Auto) 16.0 % Owen % (Auto) 7.9 % Eos % (Auto) 0.9 % Baso % (Auto) 0.3 % Immature Gran # (Auto) 0.02 (0.00-0.02) K/uL Neut # (Auto) 5.04 (1.4-6.5) K/uL Lymph # (Auto) 1.08 L (1.2-3.4) K/uL Owen # (Auto) 0.53 (0.11-0.59) K/uL Eos # (Auto) 0.06 (0-0.5) K/uL Baso # (Auto) 0.02 (0-0.2) K/uL PT 11.3 (9.0-12.0) Seconds INR 1.1 (0.9-1.1) APTT 22.4 (21.0-31.0) Seconds PTT Ratio 0.8 Sodium 139 (136-145) mmol/L Potassium 4.2 (3.5-5.1) mmol/L Chloride 109 H (98-107) mmol/L Carbon Dioxide 24 (21-32) mmol/L Anion Gap 7.0 (3-11) BUN 22 H (7-18) mg/dl Creatinine 1.02 (0.6-1.4) mg/dl Est Cr Clr Drug Dosing 71.7 ml/min Est GFR ( Amer) 89.6 Est GFR (Non-Af Amer) 77.3 BUN/Creatinine Ratio 21.8 H (10-20) Glucose 126 H (70-99) mg/dl Estimat Average Glucose mg/dl Hemoglobin A1c (4.5-5.6) % Calcium 8.9 (8.5-10.1) mg/dl Magnesium 2.2 (1.8-2.4) mg/dl Total Bilirubin 2.8 H (0.2-1) mg/dl AST 19 (15-37) U/L ALT 31 (12-78) U/L Alkaline Phosphatase 73 (45-117) U/L CK-MB (CK-2) 5.5 H (0.5-3.6) ng/ml CK/CKMB % Calc Not Reportable Troponin I < 0.015 (0-0.045) ng/ml Total Protein 7.0 (6.4-8.2) gm/dl Albumin 3.9 (3.4-5.0) gm/dl Globulin 3.1 (2.5-4.0) gm/dl Albumin/Globulin Ratio 1.3 (0.9-2) Hepatitis C Ab Screen (Neg) 03/17/19 03/17/19 Range/Units 18:44 18:44 WBC (4.8-10.8) K/uL RBC (4.7-6.1) M/uL Hgb (14.0-18.0) g/dL Hct (42-52) % MCV (80-100) fL MCH (25-34) pg MCHC (32-36) g/dL RDW Std Deviation (36.4-46.3) fL RDW Coeff of Ainsley (11.5-14.5) % Plt Count (130-400) K/uL MPV (7.4-10.4) fL Immature Gran % (Auto) % Neut % (Auto) % Lymph % (Auto) % Owen % (Auto) % Eos % (Auto) % Baso % (Auto) % Immature Gran # (Auto) (0.00-0.02) K/uL Neut # (Auto) (1.4-6.5) K/uL Lymph # (Auto) (1.2-3.4) K/uL Owen # (Auto) (0.11-0.59) K/uL Eos # (Auto) (0-0.5) K/uL Baso # (Auto) (0-0.2) K/uL PT (9.0-12.0) Seconds INR (0.9-1.1) APTT (21.0-31.0) Seconds PTT Ratio Sodium (136-145) mmol/L Potassium (3.5-5.1) mmol/L Chloride (98-107) mmol/L Carbon Dioxide (21-32) mmol/L Anion Gap (3-11) BUN (7-18) mg/dl Creatinine (0.6-1.4) mg/dl Est Cr Clr Drug Dosing ml/min Est GFR ( Amer) Est GFR (Non-Af Amer) BUN/Creatinine Ratio (10-20) Glucose (70-99) mg/dl Estimat Average Glucose 97 mg/dl Hemoglobin A1c 5.0 (4.5-5.6) % Calcium (8.5-10.1) mg/dl Magnesium (1.8-2.4) mg/dl Total Bilirubin (0.2-1) mg/dl AST (15-37) U/L ALT (12-78) U/L Alkaline Phosphatase (45-117) U/L CK-MB (CK-2) (0.5-3.6) ng/ml CK/CKMB % Calc Troponin I (0-0.045) ng/ml Total Protein (6.4-8.2) gm/dl Albumin (3.4-5.0) gm/dl Globulin (2.5-4.0) gm/dl Albumin/Globulin Ratio (0.9-2) Hepatitis C Ab Screen Neg (Neg) Imaging Data Radiologist's Impression: Radiology results as stated below per my review and the radiologist's interpretation: CT head/brain wo con CLINICAL HISTORY: Stroke like symptoms. Disequilibrium. COMPARISON STUDY: No previous studies for comparison. TECHNIQUE: Axial CT of the brain is performed from the vertex to the skull base. IV contrast was not administered for this examination. A dose lowering technique was utilized adhering to the principles of ALARA. CT DOSE: 537.48 mGy.cm FINDINGS: No intra or extra-axial mass lesions are visualized. There is no CT evidence of acute cortical infarction. There is no evidence of midline shift. There is no acute hemorrhage. No calvarial fractures are visualized. There are minimal white matter hypodensities likely on a small vessel basis. There is no evidence of pathologic ventricular dilatation. There is no evidence of acute sinusitis IMPRESSION: No acute intracranial findings Electronically signed by: Issac David M.D. 03/17/2019 7:12 PM XR chest 1V portable CLINICAL HISTORY: Weakness, dizziness. COMPARISON STUDY: November 2016 FINDINGS: The heart is mildly enlarged. There is aortic tortuosity/ectasia. There is no focal pulmonary consolidation. There is slight elevation of the interstitium. While this may be related to technical factors an element of mild pulmonary vascular congestion cannot be excluded. There is an equivocal 7 mm right upper lung zone nodule. IMPRESSION: 1. Mild cardiomegaly 2. Mild elevation of the interstitium. An element of mild pulmonary vascular congestion cannot be excluded 3. Equivocal 7 mm right upper lung zone pulmonary nodule 4. No evidence of focal pulmonary consolidation Electronically signed by: Issac David M.D. 03/17/2019 6:53 PM ECG Data Attestation: I personally reviewed and interpreted this ECG as follows: Indication: other (dizziness) Rate (beats per minute): 56 Rhythm: sinus bradycardia Findings: + other (inferior infarct); no ST depression and no ST elevation Comparison ECG Date: from (12/08/06) Change: the following changes noted (inferior infarct) Blood Pressure Blood Pressure Findings: Elevated blood pressure Blood Pressure Disposition: further management by hospitalist [facility] Narrative This is a 64-year-old male who presents emergency department complaining of severe dizziness. I will note that the patient's blood pressure here is high. He was given Zofran as well as atenolol for his blood pressure however the patient's blood pressure remain elevated. He was sent for CAT scan of the head which did not show any evidence of acute process. The patient remained dizzy and began vomiting while in the emergency department. In addition there are also new Q waves on the patient's EKG. He denies any chest pain. I did discuss the case with the cigarette making examiner on-call as well as the hospitalist patient was admitted to the hospital. Impression & Plan Dizziness, Hypertensive encephalopathy Discharge Plan Visit Data *Final* Discharge Date/Time: 03/17/19 22:03 Chief Complaint: Dizziness Stated Complaint: DIZZY,VOMITING ED Provider: Bayron Knight Discharge Problem: Dizziness, Hypertensive encephalopathy Patient Disposition: Admitted As Inpatient Discharge Instructions Interventions: ED Discharge Assessment Last Done: 03/17/19 22:03 The scribe's documentation has been prepared under my direction and personally reviewed by me in its entirety. I confirm that the note above accurately reflects all work, treatment, procedures, and medical decision making performed by me.
[2019-03-17] MEDS ORDERED: HEPARIN SOD 5,000 UNIT/0.5 ML VIAL SQ SCH (23:30)
[2019-03-17] MEDS: ONDANSETRON INJ 2 MG/ML 2 ML VIAL IV PRN (23:57)
[2019-03-18 05:48] LABS: Basophils # (auto) 0.02 K/uL (0-0.2); Basophils % (auto) 0.2 %; Eosinophils # (auto) 0.07 K/uL (0-0.5); Eosinophils % (auto) 0.8 %; Hematocrit (blood only) 44.6 % (42-52); Hemoglobin 16.3 g/dL (14.0-18.0); Immature Granulocytes # (auto) 0.02 K/uL (0.00-0.02); Immature Granulocytes % (auto) 0.2 %; Lymphocytes # (auto) 1.04 K/uL (1.2-3.4); Lymphocytes % (auto) 12.3 %; Mean Corpuscular Hgb Conc 36.5 g/dL (32-36); Mean Corpuscular Volume 90.5 fL (80-100); Mean Platelet Volume 10.4 fL (7.4-10.4); Monocytes # (auto) 0.61 K/uL (0.11-0.59); Monocytes % (auto) 7.2 %; Neutrophils # (auto) 6.71 K/uL (1.4-6.5); Neutrophils % (auto) 79.3 %; Platelet Count 148 K/uL (130-400); RDW Coefficient of Variation 13.9 % (11.5-14.5); RDW Standard Deviation 45.2 fL (36.4-46.3); Red Blood Count 4.93 M/uL (4.7-6.1); White Blood Count 8.47 K/uL (4.8-10.8)
[2019-03-18] MEDS ORDERED: HEPARIN SOD 5,000 UNIT/0.5 ML VIAL SQ SCH (06:00)
[2019-03-18 06:14] LABS: BUN Creatinine Ratio 18.3 (10-20); Calcium 8.9 mg/dl (8.5-10.1); Creatinine Clr Calc Pharmacy 79.8 ml/min; Est GFR (African American) 101.5; Est GFR (Non-African American) 87.6; Potassium 4.3 mmol/L (3.5-5.1)
[2019-03-18 06:29] LABS: Estimated Average Glucose 97 mg/dl
[2019-03-18] MEDS ORDERED: IOVERSOL 100ml IV PRN (08:42)
[2019-03-18] MEDS ORDERED: ASPIRIN 81 MG ECTAB PO SCH (09:00)
[2019-03-18] MEDS ORDERED: AMLODIPINE BESYLATE 5 MG TAB PO SCH (09:00)
[2019-03-18] MEDS ORDERED: LISINOPRIL 5 MG TAB PO SCH (09:00)
--- NOTE | 2019-03-18 09:01 | CT Scan Report ---
CT OF THE ABDOMEN WITH AND WITHOUT CONTRAST PANCREAS PROTOCOL CLINICAL HISTORY: Abdominal pain. Abnormal ultrasound. COMPARISON STUDY: CT of the abdomen and pelvis October 30, 2016. Right upper quadrant ultrasound Feb. FINDINGS: A few calcified thoracic lymph nodes are noted. A gallstone within the gallbladder is noted . There is no evidence for acute cholecystitis by CT. There is no biliary or pancreatic ductal dilata tion. Apparent pancreatic ductal dilatation on prior ultrasound was artifactual. The pancreas is norm al. Is no pancreatic lesion. There is no peripancreatic infiltration. The spleen and adrenal glands a s well as the left kidney are normal. There is a cyst within the upper pole of the right kidney. Ther e is scarring within the lower pole of the right kidney. There is no abdominal lymphadenopathy or asc ites. Fat-containing umbilical hernia is noted. Caliber and wall thickness of visualized small and la rge bowel are normal. There is mild to moderate stenosis at the origin of the right renal artery. IMPRESSION: 1. Normal CT appearance of the pancreas. Possible pancreatic ductal dilatation on ultrasound March 04, 2019 was artifactual. 2. Cholelithiasis. No evidence for acute cholecystitis. Electronically signed by: Kamlesh López M.D. 03/18/2019 9:00 AM
[2019-03-18] MEDS: ONDANSETRON INJ 2 MG/ML 2 ML VIAL IV PRN (10:20)
--- NOTE | 2019-03-18 11:17 | Ultrasound Report ---
US carotid doppler BI CLINICAL HISTORY: 64 years-old Male presenting with dizziness. TECHNIQUE: Real-time grayscale and color and spectral Doppler ultrasound imaging of the bilateral car otid arteries was performed. Stenosis measurements were based on NASCET-like criteria (distal lumen d iameter as the denominator for stenosis measurement). COMPARISON: None. FINDINGS: RIGHT: Common carotid artery (CCA): Atherosclerosis at the carotid bulb. Peak systolic velocity (PSV) 61 cm/ s. Internal carotid artery (ICA): Patent. PSV 47 cm/s. End diastolic velocity (EDV) 18 cm/s. ICA/CCA (systolic) ratio: 0.8. External carotid artery (ECA): Patent. PSV 66 cm/s. LEFT: CCA: Atherosclerosis at the carotid bulb. PSV 87 cm/s. ICA: Patent. PSV 69 cm/s. EDV 17 cm/s. ICA/CCA (systolic) ratio: 0.8. ECA: Patent. PSV 94 cm/s. Bilateral antegrade flow within the vertebral arteries. Blood pressure: Brachial: Right: 172/92 mmHg, Left: 163/90 mmHg. Reference ranges: Stenosis measurements are compared to reference velocity parameters by the Society of Radiologists in Ultrasound (SRU) consensus and Sonographic NASCET index (S-NASCET). * SRU Primary parameters: ICA PSV <125 cm/s = normal or less than 50% stenosis; ICA PSV 125-230 cm/s = 50-69% stenosis; ICA PSV >230 cm/s = greater than or equal to 70% stenosis. * SRU Additional parameters: ICA/CCA PSV ratio <2 = normal or less than 50% stenosis; ratio 2-4 = 5 0-69% stenosis; ratio >4 = greater than or equal to 70% stenosis. ICA EDV <40 cm/s = normal or less t wiggins 50% stenosis; ICA EDV 40-100 cm/s = 50-69% stenosis; ICA EDV >100 cm/s = greater than or equal to 70% stenosis. * S-NASCET parameters: Deceleration spectral broadening + PSV <125 cm/s = less than 50% stenosis; pa nsystolic spectral broadening + PSV <125 cm/s = 16-49% stenosis; pansystolic spectral broadening + PS V >125 cm/s + EDV <110 cm/s or ICA/CCA PSV ratio 2-4 = 50-69% stenosis; pansystolic spectral broadeni ng + PSV >270 cm/s OR EDV >110 cm/s OR ICA/CCA PSV ratio >4 = 70-79% stenosis; EDV >140 cm/s = 80-99% stenosis. IMPRESSION: 1. No hemodynamically significant stenosis seen within the carotid arteries. 2. Systemic hypertension. Electronically signed by: Efe Nelson M.D. 03/18/2019 11:16 AM
--- NOTE | 2019-03-18 13:15 | Discharge Summary ---
Date of Service March 18, 2019 Admission HPI Per Admitting Provider Chief Complaint: 64 y/o M Hx HTN, BPH, GERD, medical noncompliance. Presents with acute dizziness, nausea, vomiting and mild confusion. He had been religious hopping to "get out the word" today when the symptoms began. He denies a MCCLAIN, visual changes, unilateral weakness or numbness. His SBP on arrival to the ER was 186/112. He admits to not taking his antihypertensives for an extended period, although it is not clear why. A CT of the head was negative. Labs were unremarkable aside form an elevated bilirubin. An EKG demonstrated new inferior Q waves. As an aside, he is currently undergoing a workup for persistent nausea, occasional vomiting, upper quadrant abdominal pain and an elevated bilirubin. He had a liver US on 03/13 which demonstrated cholelithiasis, mild dilatation of the main pancreatic duct. A CT of the abdomen was recommended to exclude a lesion. A HIDA may also be in order if the CT is negative Admission Exam Per Admitting Provider General: AAO x 3 although he may be slightly slow to respond ENT: No erythema or exudates, no thrush Eyes: THOMAS, EOMI Head and neck: Normocephalic, atraumatic, No JVD, neck is supple. Chest/heart: Nontender, S1,2, RRR, no murmurs, no gallops Lungs: CTAB, no wheezing or crackles Abdomen: Nontender, nondistended, BS+ Neuro: AAO x 3, speech is clear, no unilateral weakness or loss of sensation, coordination intact - he was able to sit up without difficulty and maintain balance while sitting. Musculoskeletal: No joint inflammation, muscle tenderness, FROM Skin: No acute rashes or ulcers Extremities: No clubbing, cyanosis, edema Principal Diagnosis Dizziness Discharge Exam Constitutional WD/WN, vitals as above Eyes EOM intact bilaterally ENMT external ear and nose normal, oropharynx normal Neck normal visual inspection and trachea midline Respiratory normal respiratory effort, lungs clear to auscultation Cardiovascular RRR, no murmur, no edema Gastrointestinal (Abdomen) Inspection/Auscultation: normal bowel sounds Percussion/Palpation: abdomen soft; abdomen nontender, no guarding and abdomen not rigid Musculoskeletal no cyanosis or clubbing, extremities motor strength 5/5 Head/Neck/Chest: normocephalic and head atraumatic Skin no rashes, warm and dry Neurologic CN's II-XI intact bilaterally, moves all extremities and awake Psychiatric A+Ox3, euthymic affect Discharge Data Allergies Allergy/AdvReac Type Severity Reaction Status Date / Time Jxaunit-Khq-Cgo Reductase Allergy Unknown . Verified 03/17/19 19:31 Inhibitor Consultations 03/17/19 19:39 ED Decision to Admit Stat 03/17/19 22:38 Consult Case Management - Discharge Planning Routine Ordered Studies 03/17/19 18:30 CT head/brain wo con Stat IMPRESSION: No acute intracranial findings 03/17/19 19:51 MR brain wo con Stat IMPRESSION: 1. No acute intracranial findings 2. No evidence of acute or subacute infarction 3. No evidence of intracranial mass 4. Inflammatory changes within the right mastoid 5. Arthritic changes involving the left mandibular condyle 03/18/19 08:00 CT abdomen wo/w con Routine IMPRESSION: 1. Normal CT appearance of the pancreas. Possible pancreatic ductal dilatation on ultrasound March 04, 2019 was artifactual. 2. Cholelithiasis. No evidence for acute cholecystitis. 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 03/18/19 09:43 US carotid doppler BI Routine IMPRESSION: 1. No hemodynamically significant stenosis seen within the carotid arteries. 2. Systemic hypertension. Hospital Course (1) Dizziness: 64 y/o M Hx HTN, BPH, GERD, medical noncompliance. Presented with acute dizziness, nausea, vomiting and mild confusion. He had been religious when the symptoms began. He denied a MCCLAIN, visual changes, unilateral weakness or numbness. His SBP on arrival to the ER was 186/112. He admitted to not taking his antihypertensives for an extended period, although it is not clear why. A CT of the head was negative. Labs were unremarkable aside form an elevated bilirubin. An EKG demonstrated new inferior Q waves. As an aside, he is currently undergoing a workup for nausea, occasional vomiting, upper quadrant abdominal pain and an elevated bilirubin. He had a liver US on 03/13 which demonstrated cholelithiasis, mild dilatation of the main pancreatic duct. A CT of the abdomen was recommended to exclude a lesion, which showed that possible pancreatic ductal dilatation on 03/04/19 was artifact; cholelithiasis was noted. A HIDA may also be in order if the CT is negative on outpatient basis. Workup for stroke/cerebral pathology was unremarkable. Workup included: Cardotid Doppler study that was only remarkable for systemic HTN; Brain MRI - no evidence of infarction but inflammatory changes within right mastoid. Head CT no acute intracranial findings. CXR in ED showed: IMPRESSION: 1. Mild cardiomegaly 2. Mild elevation of the interstitium. An element of mild pulmonary vascular congestion cannot be excluded 3. Equivocal 7 mm right upper lung zone pulmonary nodule 4. No evidence of focal pulmonary consolidation (2) Hypertensive encephalopathy: He appears to have non-compliance with uncontrolled HTN most likely because of non-compliance. In the hospital, he was on Amlodipine 5mg and Lisinopril 5mg. His atenolol was held because of bradycadia in the upper 50s. We will discharge home on Amlodipine 5mg and Lisinopril 5mg daily. We will hold his atenolol until hospital follow up. It was found on CT Abdomen to have mild to moderate stenosis at the origin of the right renal artery. Total Time Total Time Spent Total Time Spent (In Minutes): <30 Total Time Includes: Examination of the Patient, Discharge Planning and Medication Reconciliation Discharge Plan Discharge Items Patient Disposition: Home - Self-Care Reason For Visit: DIZZYNESS,NAUSEA,VOMITING,HTN URGENCY Discharge Diagnosis: Dizziness; Hypertensive encephalopathy Discharge Goals: Therapeutic intervention Activity: Resume your previous activity Non-emergency contact: Primary Care Provider Call non-emergency contact if: you have any medication questions and your symptoms worsen Follow-up/Referrals: Adela Thurston MD [Primary Care Provider] - 03/22/19 2:30 pm (follow up appointment at your primary care physician offices with the mid level provider, Olga) Diet: Regular Addtl Provider Instructions: You were admitted and evaluated for dizziness and elevated blood pressure. We performed a series of tests to ensure there was no stroke activity. There was no signs of this being related to a stroke. Most likely, this was related to uncontrolled blood pressure. Please ensure you take all your prescribed medications as directed. Medication changes for your high blood pressure: - Your Amlodipine 2.5mg has been increased to 5mg daily. - Lisinopril 5mg tablet daily as been added. This is an NILA inhibitor and works through the kidney to help reduce salt absorption which leads to increase in blood pressure. - We are holding your atenolol. This medication is a beta ajay and works to slow the heart down. Your pulse was in the upper 50s, which is below normal level of 60. We are holding this medication to prevent a too slow heart rate. We will provide you with a medicine for nausea, called Zofran. Please only take this medication if you are dizzy. Please do not perform any sudden movements and take your time when changing positions from laying down to sitting; sitting to standing. Please follow up with your Primary Care Doctor on 03/22/19 at 2:30pm. At that appointment, they will manage your medication changes for your elevated blood pressure. If you are having worsening symptoms, confusion, slurred speech, weakness or numbness in one side of your body, please calll 911/return to [facility] ED/seek medical evaluation. Prescriptions: New ondansetron HCl [Zofran] 4 mg tablet 4 mg PO DAILY PRN (Reason: nausea and vomiting) Qty: 10 RF: 0 amlodipine 5 mg tablet 5 mg PO DAILY 30 Days Qty: 30 RF: 0 lisinopril [Zestril] 5 mg Tablet 5 mg PO QAM 30 Days Qty: 30 RF: 0 Continued tamsulosin 0.4 mg capsule 0.4 mg PO HS RF: 0 ranitidine HCl 150 mg tablet 150 mg PO QAM RF: 0 Discontinued amlodipine 2.5 mg tablet 2.5 mg PO HS RF: 0 atenolol 50 mg tablet 50 mg PO HS RF: 0 Stand-Alone Forms: My [facility], Work/School Release (Inpt) Discharge Orders: Discharge Order (Routine); Ordered 03/18/19 Ordered By: Timo Laguna Admission Data Admit Date/Time: 03/17/19 21:27 Attending Provider: Harrison Alfred Admit Provider: Kostas Simmons Primary Care Provider: Adela Thurston Other Providers: Kostas Simmons Service: Telemetry Other Interventions: Discharge Summary Assessment (RN) Last Done: 03/18/19 15:08 Supervising Physician Co-Signing Physician Notes I personally examined the patient and verified all hughes points of history and exam, discussed case, and agree with decision making with Dr Laguna. feeling better and would like to go home. expresses willingness to take BP meds now. discussed nausea - at the time of my exam he was still having nausea - but this then miproved to where he was well enough to go home as well. vitals noted nad breathing unlabored no pallor or icterus. no focal neuro deficits. mental status intact dizziness - appearing to be most likely hypertensive urgency (no CVA or TIA) - treat BP, follow up as outpt. nausea - seems nonspecific. can have ongoing outpt w/u (HIDA vs EGD vs other) if persists - for now he's feeling well enough to prefer going home w supportive care. otherwise as above Resident Activity Tracking Resident Involvement: Resident Care Provided Care Provided: Adult Hospital Medicine
[2019-03-18] MEDS ORDERED: TAMSULOSIN HCL 0.4 MG CAP PO SCH (21:00)
== END 2019-03-18 17:20 | disposition home or self-care (01) ==
LOC: 2S 18:09 → ED 18:09 → SUATTDRO 21:27 → 2S 22:03